=== PATIENT | female | born 1975 | race Two or more races ===

== ENCOUNTER 2022-08-26 06:46 | Emergency (ER) | payer OTHER ==
[~2022-08-26] VITALS: Ht 154.9 cm; Wt 76.2 kg
== END 2022-08-26 13:35 | disposition home or self-care (01) ==
LOC: ER 06:46
DX: S09.90XA Unspecified injury of head, initial encounter (principal); W19.XXXA Unspecified fall, initial encounter; Y93.9 Activity, unspecified; Y92.9 Unspecified place or not applicable; Y99.9 Unspecified external cause status